=== PATIENT | male | born 1995 ===

== ENCOUNTER 2017-06-16 02:41 | Emergency (ER) | payer OTHER ==
--- NOTE | 2017-06-16 04:51 | C.PDOC ---
History Of Present Illness 22 years old male presents to ED with complaints of pain to right ankle and foot after someone accidentally stepped on the back of his heel while he was positioned on tippy toes while playing basketball today. Patient states pain is worse while walking. Denies weakness, numbness, or any other physical complaints. Time Seen by Provider: 06/16/17 03:11 Chief Complaint (Nursing): Lower Extremity Problem/Injury History Per: Patient History/Exam Limitations: no limitations Onset/Duration Of Symptoms: Hrs Current Symptoms Are (Timing): Still Present Recent travel outside of the [place]: No Past Medical History Reviewed: Historical Data, Nursing Documentation, Vital Signs Vital Signs: Last Vital Signs Temp 97.9 F 06/16/17 05:01 Pulse 80 06/16/17 05:01 Resp 15 06/16/17 05:01 BP 112/72 06/16/17 05:01 Pulse Ox 97 06/16/17 06:16 - Medical History PMH: Asthma Surgical History: No Surg Hx Family History: States: Unknown Family Hx - Social History Hx Tobacco Use: No Hx Alcohol Use: Yes Hx Substance Use: Yes (marijuana) - Immunization History Hx Tetanus Toxoid Vaccination: Yes Hx Influenza Vaccination: No Hx Pneumococcal Vaccination: No Review Of Systems Constitutional: Negative for: Fever, Chills Musculoskeletal: Positive for: Other (right ankle pain) Neurological: Negative for: Weakness, Numbness Physical Exam - Physical Exam Appears: Non-toxic, No Acute Distress Skin: Warm, Dry Head: Atraumatic, Normacephalic Eye(s): bilateral: Normal Inspection, PERRL Neck: Supple Extremity: Normal ROM, Tenderness (lateral malleolus. ), No Calf Tenderness, No Deformity, No Swelling, Other (Minimal swelling/tenderness to right lat malleolus and dorsal aspect of proximal forefoot) Extremity: Bilateral: Normal Color And Temperature, Normal ROM Pulses: Left Dorsalis Pedis: Normal, Right Dorsalis Pedis: Normal Neurological/Psych: Oriented x3, Normal Speech, Normal Cognition, Normal Motor, Normal Sensation Gait: Other (Ambulatory with limp due to pain) ED Course And Treatment O2 Sat by Pulse Oximetry: 97 (RA) Pulse Ox Interpretation: Normal - Other Rad Right Ankle X-Ray X-Ray: Interpreted by Me, Viewed By Me Interpretation: No Fracture. No dislocation. Progress Note: Administered Motrin. Ordered X-ray of ankle. Patient placed in a posterior leg splint done by CP. Patient placed on crutches and instructions for crutch walking was given. Patient advised to follow up with podiatry Disposition Counseled Patient/Family Regarding: Diagnosis, Need For Followup - Disposition Referrals: Podiatry Clinic [Outside] Disposition: HOME/ ROUTINE Disposition Time: 04:51 Condition: STABLE Additional Instructions: Please follow up with podiatry/ call for appointment Take motrin for pain Return to ER if worse Prescriptions: Ibuprofen [Motrin] 600 mg PO Q6H #20 tab Instructions: Foot Sprain (DC) Forms: [employer] (Maltese), Work Excuse - Clinical Impression Clinical Impression: Right ankle sprain, Right foot sprain - PA / [employer] EDGER / Resident Statement MD/DO has reviewed & agrees with the documentation as recorded. - Scribe Statement The provider has reviewed the documentation as recorded by the Frankiibresham Leggett All medical record entries made by the Frankiibreshma were at my direction and personally dictated by me. I have reviewed the chart and agree that the record accurately reflects my personal performance of the history, physical exam, medical decision making, and the department course for this patient. I have also personally directed, reviewed, and agree with the discharge instructions and disposition.
[2017-06-16 05:02] VITALS: BP 112/72; PULSE 80; RESP 15; TEMP 97.9
[2017-06-16 06:11] VITALS: O2SAT 97
--- NOTE | 2017-06-16 15:35 | RAD ---
PROCEDURE: Right Ankle Radiographs. HISTORY: ankle pain COMPARISON: None FINDINGS: BONES: No evidence of acute fracture JOINTS: Normal. No osteoarthritis. Ankle mortise maintained. Talar dome intact SOFT TISSUES: Normal. OTHER FINDINGS: None. IMPRESSION: No evidence of acute fracture or dislocation.
== END 2017-06-16 05:31 | disposition home or self-care (01) ==
LOC: C.ER 02:41
DX: S93.401A Sprain of unspecified ligament of right ankle, initial encounter (principal); S93.601A Unspecified sprain of right foot, initial encounter; W50.0XXA Accidental hit or strike by another person, initial encounter; Y93.67 Activity, basketball; Y92.39 Other specified sports and athletic area as the place of occurrence of the external cause